=== PATIENT | female | born 1940 | race Caucasian/White ===

== ENCOUNTER → 2018-07-23 | Outpatient (CLI) | payer OTHER ==
[~2018-07-23] MED LIST: AMOXICILLIN 50500 MG PO; ASPIRIN EC81 M1 PO; ASPIRIN325 PO; AUGMENTIN 875875 MG PO; AZITHROMYCIN 2250 MG PO; BIAXIN500 MG PO; CARDIZEM CD240 MG PO; CITRATE OF MAG296 ML PO; COREG OR; COREG PO; COUMADIN OR; COUMADIN PO; DILTIAZEM ER240 M1 OR; FLECAINIDE ACET50 M1; FLONASE 0.05%50 MCG NASAL; FOLIC ACID 40400 MCG; GLUCOPHAGE XR500 MG PO; GLUCOPHAGE500 MG OR; HYDROCODON-ACE1 EACH OR; HYDROCODON-ACE1 EACH PO; IBUPROFEN 800800 M1 PO; LATANOPROST2.5 ML OPHTHALMIC; MACROBID 100 M100 M1 PO; MINIPRIN81 MG OR; OMEPRAZOLE40 MG PO; PERCOCET 7.5-31 EACH PO; PRINIVIL20 MG PO; PRINZIDE 20-121 EACH OR; PRINZIDE 20-121 EACH PO; TOPROL XL100 MG PO; TRUSOPT5 ML OP; XARELTO20 MG; ZOFRAN ODT4 MG PO
== END ==
LOC: M.RAD 11:22
DX: M54.12 Radiculopathy, cervical region (principal); I48.91 Unspecified atrial fibrillation; I10 Essential (primary) hypertension; E11.9 Type 2 diabetes mellitus without complications

== ENCOUNTER → 2018-08-04 | Outpatient (CLI) | payer OTHER | LOC: M.MRI 11:22 | DX: M43.22 Fusion of spine, cervical region (principal); M50.21 Other cervical disc displacement, high cervical region; M25.78 Osteophyte, vertebrae; M48.02 Spinal stenosis, cervical region ==

== ENCOUNTER → 2018-08-20 | Outpatient (CLI) | payer OTHER ==
[2018-08-20 09:50] LABS: CREATININE 0.7 mg/dL (0.6-1.3)
== END ==
LOC: M.CT 08-07 10:14 → M.LAB 09:20 → M.CT 11:00
PROVIDERS: Family Medicine
DX: I51.7 Cardiomegaly (principal); E27.9 Disorder of adrenal gland, unspecified; R93.89 Abnormal findings on diagnostic imaging of other specified body structures

== ENCOUNTER → 2018-08-28 | Outpatient (CLI) | payer OTHER ==
[~2018-08-28] MED LIST changes: +CLONIDINE0.1 PO; +HYDROCODONE-ACE15 ML PO; +UNICOMPLEX M TA1 TA1 PO; +VITAMIN A10000 UNI3 BUCCAL; +VITAMIN D3400 UNIT PO
--- NOTE | 2018-09-03 13:07 | PATH ---
[address] [address] PATHOLOGY RPT PROCEDURE Name: FADIA GARCIAS Room: [facility] PAL [place]#: [id number] Admission: 08/28/18 Date of : 40 Discharge: Report #: [id number] Path Case #: [id number] [facility] Accession Number: [id number] . 01 Material submitted: . LEFT SCAPULA MASS . 01 Clinical history: . Please refer to requisition for information . 02 Diagnosis: Specimen is left scapula mass, biopsy: - Fragments of soft tissue consisting of fat, skeletal muscle, and fibrosis with hemosiderin laden macrophages. - Negative for malignancy. - See comment. . (MAP:at;09/03/2018) QTA/09/03/2018 . 02 Comment: Immunohistochemical stains were performed on this specimen (block A2; appropriate controls) as follows: . GQ03-beohndjctc histiocytes. OE8YH5-wekveqju. . These findings support the above diagnosis. Should a clinical suspicion for malignancy remain, re-biopsy would be indicated . Clinical correlation is recommended. . Dr. Remy is a co-review on this case. . (MAP:at;09/03/2018) . 02 Electronically signed: . Marlon Gabriel MD, Pathologist NPI- [id number] . 01 Gross description: . Received in formalin labeled "Fadia Garcias, left scapula mass," are 4 to single needle cores of guerrero soft tissue ranging from 0.8 to 2.1 cm in length and measuring less than 0.1 cm each in diameter. The specimen is submitted entirely in cassettes A1 through A3. (TSD; 08/31/2018) TOB/TOB . 02 Pathologist provided ICD-10: [place] [address] PATHOLOGY RPT PROCEDURE Name: FADIA GARCIAS Room: [facility]#: [id number] Admission: 08/28/18 Date of : 40 Discharge: Report #: [id number] Path Case #: [id number] M79.89, R22.2 . 02 CPT . [id number] Specimen Comment: A courtesy copy of this report has been sent to Specimen Comment: [phone], . Specimen Comment: Report sent to / DR OHRN Performed at: 01 [facility] [address], [place], [place] [id number] MD Jenaro Odonnell MD Phone: [phone] Performed at: 02 [facility] [id number] [place] [id number] MD Piedad Austin MD Phone: [phone]
== END | disposition home or self-care (01) ==
LOC: M.CT 09:33
DX: R22.2 Localized swelling, mass and lump, trunk (principal); M79.9 Soft tissue disorder, unspecified; Z53.8 Procedure and treatment not carried out for other reasons

== ENCOUNTER → 2018-08-31 | Outpatient (CLI) | payer OTHER ==
[2018-08-31] VITALS (13 sets, daily range): BP systolic 168–228; BP diastolic 72–96
[~2018-08-31] VITALS: Ht 157.5 cm; Wt 75.7 kg
[2018-08-31 10:09] LABS: HEMATOCRIT 38.1 % (37.0-47.0); HEMOGLOBIN 12.7 gm/dL (12.0-15.0); MCH 29.5 pg (26.0-34.0); MCHC 33.3 g/dL (28.0-37.0); MCV 88.5 fL (80.0-100.0); MPV 8.1 fl. (7.2-11.1); RBC 4.31 mil/uL (4.20-5.00); RDW-CV 14.3 % (10.5-14.5); WBC 10.9 thou/uL (4.0-11.0)
[2018-08-31 10:10] LABS: CALCIUM 9.5 mg/dL (8.5-10.1); CREATININE 0.7 mg/dL (0.6-1.3); POTASSIUM 3.7 mmol/L (3.5-5.1)
[2018-08-31 10:16] LABS: APTT 30.8 Seconds (25.0-31.3); INR 1.1; PROTIME 10.8 Seconds (9.20-11.50)
== END | disposition home or self-care (01) ==
LOC: M.CT 09:18
PROVIDERS: Radiology Diagnostic Radiology
DX: M79.89 Other specified soft tissue disorders (principal); R22.32 Localized swelling, mass and lump, left upper limb; I48.91 Unspecified atrial fibrillation; Z90.49 Acquired absence of other specified parts of digestive tract; Z90.710 Acquired absence of both cervix and uterus; Z98.890 Other specified postprocedural states; Z79.01 Long term (current) use of anticoagulants; Z85.3 Personal history of malignant neoplasm of breast; Z88.8 Allergy status to other drugs, medicaments and biological substances; Z79.899 Other long term (current) drug therapy

== ENCOUNTER → 2019-07-06 | Outpatient (CLI) | payer OTHER | LOC: M.ULTRA 08:51 | DX: M79.89 Other specified soft tissue disorders (principal); M54.5 Low back pain; C50.111 Malignant neoplasm of central portion of right female breast; C50.112 Malignant neoplasm of central portion of left female breast ==

== ENCOUNTER 2020-03-24 11:10 | Inpatient (IN) | payer OTHER ==
[~2020-03-24] VITALS: Ht 157.5 cm; Wt 76.2 kg
[~2020-03-24 11:10] MED LIST changes: +CATAPRES0.1 MG PO; -CLONIDINE0.1 PO; +VITAMIN D-40010 MCG PO; -VITAMIN D3400 UNIT PO
[2020-03-24 11:14] VITALS: BP 129/93
[2020-03-24 11:24] VITALS: BP 139/52
[2020-03-24] MEDS ORDERED: [UNRECOGNIZED DRUG - REMARK] (11:38)
[2020-03-24 12:29] LABS: HEMOGLOBIN 12.7 gm/dL (12.0-15.0); MCHC 34.3 g/dL (28.0-37.0); MCV 90.3 fL (80.0-100.0); MPV 8.1 fl. (7.2-11.1); NUCLEATED RBCS 0 /100WBC; PLATELET COUNT* 263 thou/uL (150-400); RBC 4.09 mil/uL (4.20-5.00); WBC 26.4 thou/uL (4.0-11.0)
[2020-03-24 12:40] LABS: CALCIUM 8.7 mg/dL (8.5-10.1)
[2020-03-24 12:41] LABS: APTT 31.5 Seconds (25.0-31.3); INR 1.2
[2020-03-24 12:45] LABS: TOTAL BILIRUBIN 0.6 mg/dL (<0.1-1.0); TOTAL PROTEIN 8.2 g/dL (6.4-8.2)
[2020-03-24 13:13] LABS: ABSOLUTE LYMPHOCYTES 0.5 thou/uL (0.8-5.3); ABSOLUTE MONOCYTES 0.3 thou/uL (0.0-1.2); ABSOLUTE NEUTROPHILS 25.6 thou/uL (1.6-8.1); ANISOCYTOSIS 1+; PLATELET ESTIMATE ADEQUATE; POIKILOCYTOSIS 1+
[2020-03-24 15:25] VITALS: BP 128/54
[2020-03-24 15:45] VITALS: BP 148/57
--- NOTE | 2020-03-24 15:56 | EKG ---
[place] [address] ELECTROCARDIOGRAM REPORT Name: FADIA SCHROEDER Room: [place] [address] ADM IN .R.#: [id number] Admission: 03/24/20 Attend Phys: Zander Khanna Discharge: Date of : 40 Date of Service: 03/24/20 1211 Report #: [id number] THIS REPORT FOR: //name// [facility] ED Test Date: 2020-03-24 Test Time: 12:11:06 Pat Name: FADIA SCHROEDER Department: Room: [facility] Gender: F Marketing Communication Manager: : 1940 Requested By: Misty Aragon Order Number: [id number] MD: Rex Weston Measurements Intervals Shunk Rate: 68 P: 24 WI: 158 QRS: -9 QRSD: 124 T: -6 QT: 420 QTc: 447 Interpretive Statements Sinus rhythm Probable left ventricular hypertrophy Probable inferior infarct, age indeterminate Anterior Q waves, possibly due to LVH Compared to ECG 05/02/2016 12:17:17 Myocardial infarct finding now present Left ventricular hypertrophy now present Q waves now present Atrial flutter no longer present Electronically Signed On 03-24-2020 15:54:31 CDT by Rex Weston [email or web address] <ELECTRONICALLY SIGNED> By: Rex Weston MD, [facility] 03/24/20 1554 1211 Rex Weston MD, [facility] /EPI
--- NOTE | 2020-03-24 18:20 | NUR ---
RECEIVED REPORT FROM ER NURSE MICHAEL. PT ARRIVED TO ORTHO FLOOR AROUND 1545. PT ORIENTED TO ROOM, BED AND CALL LIGHT. ADMISSION ASSESSMENT, HISTORY AND EDUCATION COMPLETED CHARTED. PT TOLERATED DINNER WITH NO ISSUE AFTER BEING SET UP AND FOOD CUT UP. MEDS PER EMAR. PT REPORTED PAIN TO RUE - CONTACTED DR VILLELA FOR PAIN MEDICATION ORDER. MEDS RECONCILED. IV INTACT WITH IVF GOING. REDNESS AND WARMTH NOTED TO BACK, CHEST, ABDOMEN, AND DOWN RUE. RUE SWOLLEN, NON PITTING. MIDDLE FINGER OF RIGHT HAND HAS RED, IRRITATED CUTICLE. DR RICARDO. PT CURRENTLY SITTING UP IN BED. CALL LIGHT IS WITHIN REACH. HOURLY ROUNDING PERFORMED. FALL PRECAUTIONS IN PLACE.
[2020-03-24 19:30] VITALS: BP 109/52
--- NOTE | 2020-03-25 00:35 | NUR ---
PT HAVE NOT VOIDED SINCE BEGINNING OF SHIFT, DESPITE BEING ON IVF. RN ATTEMPTED BLADDER SCANNING PT @0030. PT REFUSED, SLAPPING RN'S HAND AND DEMANDING TO BE LEFT TO SLEEP. RN LEFT PT'S RM. BLADDER SCANNING NOT COMPLETED. WILL CONTINUE TO MONITOR.
[2020-03-25 05:04] LABS: HEMATOCRIT 36.6 % (37.0-47.0); HEMOGLOBIN 12.5 gm/dL (12.0-15.0); MCHC 34.1 g/dL (28.0-37.0); MCV 90.8 fL (80.0-100.0); MPV 8.6 fl. (7.2-11.1); RBC 4.02 mil/uL (4.20-5.00); RDW-CV 13.7 % (10.5-14.5); WBC 21.8 thou/uL (4.0-11.0)
[2020-03-25 05:10] LABS: URINE BILIRUBIN NEGATIVE (Negative); URINE BLOOD NEGATIVE (Negative); URINE CLARITY CLEAR; URINE COLOR YELLOW; URINE GLUCOSE-RANDOM NEGATIVE (Negative); URINE KETONES NEGATIVE (Negative); URINE LEUKOCYTES NEGATIVE (Negative); URINE NITRITE NEGATIVE (Negative); URINE PROTEIN NEGATIVE (Negative); URINE SPECIFIC GRAVITY <= 1.005 (1.005-1.030); URINE UROBILINOGEN 0.2 E.U./dl (0.2-1.0)
[2020-03-25 05:13] LABS: APTT 34.5 Seconds (25.0-31.3); INR 1.1; PROTIME 11.6 Seconds (9.20-11.50)
[2020-03-25 05:26] LABS: ALBUMIN 2.5 g/dL (3.4-5.0); ALKALINE PHOSPHATASE 18 U/L (46-116); ANION GAP 11 mmol/L (7-16); BUN 28 mg/dL (7-18); CALCIUM 8.3 mg/dL (8.5-10.1); CHLORIDE 98 mmol/L (98-107); CO2 23 mmol/L (21-32); CREATININE 0.9 mg/dL (0.6-1.3); GLUCOSE 159 mg/dL (70-99); SGOT 19 U/L (15-37); SGPT 23 U/L (30-65); SODIUM 132 mmol/L (136-145); TOTAL BILIRUBIN 0.4 mg/dL (<0.1-1.0); TOTAL PROTEIN 6.9 g/dL (6.4-8.2); TROPONIN-I LEVEL <0.06 ng/mL (<0.06)
--- NOTE | 2020-03-25 06:47 | NUR ---
PT SLEPT WELL FOR MOST PART OF SHIFT. PT WOKE VERY CONFUSED, TEARFUL, WANTING TO "GET UP AND GO TO HER BED". PT WAS ATTEMPTING TO GET O UT OF BEDF. ALL SIDERAILS WERE RAISED UP AT THAT TIME. NURSING REMAIED IN THE ROOM TO ENSURE SAFETY. PT LATER ON BECAME CONSOLABLE. PT APPOLOGIZED FOR THE WAY SHE ACTED, SAYING " I THINK I'M GOING CRAZY". PT VOIDED AT THE TIME. UA SENT TO LAB. PT WENT RESTED SOME MORE. PT IS NOW COOPERATIVE. FALL PRECAUTION IN PLACE. WILL CONTINUE TO MONITOR.
[2020-03-25 07:50] VITALS: BP 154/59
--- NOTE | 2020-03-25 17:37 | NUR ---
PT A&OX4 CONFUSED/FORGETFUL AT TIMES. HX OF CANCER, CURRENTLY BEING TREATED AT [place]. HEM/ONC CONSULTED REQUESTED BY DR VILLELA. DR FOSS RESPONDED TO [facility], BUT STATES THEIR GROUP DOES NOT COME HERE. DR AHUMADA WAS CONSULTED AND VISITED THIS PT. NO NEW PLAN MADE, SINCE THIS PT STATES SHE HAS PET SCAN SCHEDULED WITH HER HEM/ONC IN NEAR FUTURE. PT UP TO BSC W/MINIMAL ASSIST. FALL PRECAUTIONS REMAIN IN PLACE. IV TO LAC BECAME DISLODGED, AND WAS NO LONGER PATENT. THIS IV DC'D AND NEW ACCESS PLACED TO LFA. PT IS ACCUCHECK, NO INSULIN ON DEC. UPPER BACK AND RUE STILL RED, RUE REMAINS SWOLLEN. IV FLUIDS DC'D APPROVED BY DR VILLELA SINCE PT EATING/DRINKING/URINATING. IV SALINE LOCKED WHEN ABX NOT INFUSING. PT RESTS IN BED AT THIS TIME WITH PHONE AND CALL LIGHT IN REACH. WILL CONTINUE TO MONITOR.
[2020-03-25 19:30] VITALS: BP 182/80
[2020-03-26] VITALS: BP 148/53
--- NOTE | 2020-03-26 05:06 | NUR ---
PT SLEPT WELL THIS SHIFT. PT ALERT AND ORIENTED. OCCASSIONAL CONFUSION. FORGETFUL. MEDS GIVEN PER EMAR. PAIN MEDS GIVEN THIS SHIFT. FALL PRECAUTION IN PLACE. CALL LIGHT WITHIN REACH. WILL CONTINUE TO MONITOR.
[2020-03-26 08:50] VITALS: BP 166/68
--- NOTE | 2020-03-26 18:05 | NUR ---
PT AWAKE/ALERT, FORGETFUL AT TIMES. TEARFUL INTERMITTANT THROUGH SHIFT. VSS. IV TO LFA PATENT, DRESSING C/D/I. PT IS ACCUCHECK, NO INSULIN ON DEC. PT USES CALL LIGHT APPROPRIATELY. MIN ASSIST X1 TO BSC. PT REMAINS CONTINENT OF B/B. SWELLING/REDNESS IMPROVED. RUE ELEVATED FOR SWELLING. PT REMAINS ON FALL PRECAUTIONS. PT FAMILY DELIVERED HOME MEDICATION ([facility]), DR BRENNAN NOTIFIED. MED NOT ADDED TO MAR AT THIS TIME, MEDICATION SECURED WITH PHARMACY. PT RESTS IN BED WITH CALL LIGHT IN REACH. WILL CONTINUE TO MONITOR.
[2020-03-26 20:00] VITALS: BP 144/61
--- NOTE | 2020-03-27 06:33 | NUR ---
PT ALERT AND ORIENTED. CONFUSED. FORGETFUL. PT SLEPT WELL THIS SHIFT. APIN MED GIVEN X1 THIS SHIFT. NO BM NOTED FOR 5 DAYS NOW PER PT. PT IS WANTING TO TAKE MILK OF MAG. WILL PASS ON TO DAY SHIFT RN. FALL PRECAUTION IN PLACE. CALL LIGHT WITHIN REACH. HOURLY ROUNDINGS MADE. WILL CONTINUE TO MONITOR.
[2020-03-27 07:05] VITALS: BP 182/90
[2020-03-27 16:45] VITALS: BP 165/84
--- NOTE | 2020-03-27 16:55 | NUR ---
pt remained alert and oriented and forgetful. pt tearful during shift. pt states she feels like a burden. meds given as ordered. fall risk precautions in place. hourly rounding completed. will continue to monitor.
[2020-03-27 20:00] VITALS: BP 189/92
[2020-03-27 21:13] VITALS: BP 168/71
[2020-03-28 00:18] VITALS: BP 108/61
[2020-03-28 03:47] VITALS: BP 111/86
--- NOTE | 2020-03-28 04:28 | NUR ---
ASSUMED CARE OF PT 03/27/20 AT APPROX 1915. PT A&OX4, ON RA, VSS, RUE ELEVATED. PAIN MED REQUESTED AND GIVEN ORDERED. PT SLEEPING WELL. ASSESSMENTS AND HOURLY ROUNDINGS COMPLETE, WILL CONTINUE TO MONITOR.
[2020-03-28 08:08] VITALS: BP 175/68
--- NOTE | 2020-03-28 15:11 | NUR ---
SPOKE WITH PT.IN ROOM. SHE WAS ALERT AND ORIENTED. RIGHT ARM EDEMATOUS AND UP ON PILLOW. SHE SAID SHE LIVES AT HOME WITH HER AND 3 ADULT CHILDREN. AND ONE SON ARE HOME DURING THE DAY WITH HER. THE OTHER 2 WORK DURING THE DAY. SHE SAID SHE WAS TOTALLY INDEPENDENT AT HOME PRIOR TO COMING INTO THE HOSPITAL. SHE COULD SHOWER AND DRESS HERSELF. HER DAUGHTER,ASHOK, WOULD STAND BY WHILE SHE WAS IN THE SHOWER. HAS A HX OF [facility] IN THE PAST. CANNOT REMEMBER NAME OF CO. DISCUSSED SNF AT DISCHARGE. SHE SAID SHE WILL THINK ABOUT IT. SHE WOULD LIKE ME TO CALL ASHOK,HER DAUGHTER, BUT SAID SHE WON'T BE ABLE TO ANSWER UNTIL 5PM.
[2020-03-28 16:00] VITALS: BP 144/62
--- NOTE | 2020-03-28 17:20 | NUR ---
CALLED DAUGHTER,ASHOK,ON CELL [phone]. DISCUSSED DISCHARGE PLANNING WITH HER. EXPLAINED HER MOM WAS UNDECIDED ABOUT GOING TO SNF OR NOT. SHE WANTED ME TO SPEAK WITH ASHOK ABOUT IT. ASHOK SAID SHE WENT TO [facility] ONCE BUT SHE WOULD NOT WANT TO GO THERE. SHE WOULD LIKE HER TO BE CLOSE TO [place]. IF [facility] TAKES HER INS.,THAT IS WHERE THEY WOULD WANT HER TO GO . SHE WILL CALL HER MOM THIS EVENING AND HAVE HER DAD ON THE PHONE TOO AND DISCUSS. CM WILL CHECK WITH PT.IN AM.
[2020-03-28 21:46] VITALS: BP 180/76
--- NOTE | 2020-03-29 05:37 | NUR ---
RIGHT UPPER EXTREMETY ADMINISTRATIVE MEDICAL DIRECTOR AND SORE TO TOUCH. SHE RECEIVED HYDROCODONE AT 21:32 FOR PAIN AND REQUESTED NO MORE THE REST OF THE SHIFT. SHE IS UP STANDBY ASSIST TO THE COMMODE. SHE IS ON ROOM AIR. MRI ORDERED AND ORTHO CONSULTED FOR SHOULDER PAIN AND LIMITED ROM. WILL CONTINUE TO MONITOR.
[2020-03-29 07:39] VITALS: BP 189/83
[2020-03-29 10:54] LABS: HEMATOCRIT 37.2 % (37.0-47.0); HEMOGLOBIN 12.6 gm/dL (12.0-15.0); MCH 30.5 pg (26.0-34.0); MCHC 33.8 g/dL (28.0-37.0); MPV 8.4 fl. (7.2-11.1); RBC 4.13 mil/uL (4.20-5.00); RDW-CV 13.5 % (10.5-14.5); WBC 15.5 thou/uL (4.0-11.0)
[2020-03-29 11:00] VITALS: BP 147/72
[2020-03-29 11:00] LABS: CALCIUM 8.2 mg/dL (8.5-10.1); CREATININE 0.7 mg/dL (0.6-1.3)
--- NOTE | 2020-03-29 14:00 | NUR ---
SPOKE WITH PT. SHE SAID SHE THINKS HER FAMILY WANTS [facility] FOR HER FOR A SKILLED STAY. SHE WAS TEARFUL. SAID SHE NEVER WANTS TO BE A BURDEN ON HER FAMILY. CM CONFIRMED THAT IT WAS [facility] TO SEND REFERRAL TO, WITH ASHOK,PTS DAUGHTER . FAXED REFERRAL TO [facility] ADMISSIONS. THEY WILL REVIEW AND NEED TO OBTAIN INSURANCE AUTH.
[2020-03-29 16:00] VITALS: BP 172/80
--- NOTE | 2020-03-29 16:35 | NUR ---
PT UP TO BSC WITH STB ASSIST. BILLIE WRAP PLACED TO RUE R/T EDEMA. PRN PAIN MEDICATION GIVEN. PT CONFUSED AND FORGETFUL AT TIMES. PROGRESSING TOWARDS GOALS.
--- NOTE | 2020-03-29 18:11 | NUR ---
ASSUMED CARE OF PATIENT AT 1700. RECEIVED REPORT FROM MAI RODRIGUEZ.
[2020-03-29 20:44] VITALS: BP 167/77
--- NOTE | 2020-03-30 04:47 | NUR ---
PAIN WELL TOLERATED. RECEIVED ALL MEDS SCHEDULED. KEVIN IS WRAPPED IN BILLIE WRAP AND ELEVATED. SHE IS ABLE TO GET UP TO COMMODE WITH STANDBY ASSIST. SHE WAS ABLE TO SLEEP MOST OF THE SHIFT VERY WELL. PLAN IS TO D/C TO SNF. WILL CONTINUE TO FOLLOW PLAN OF CARE.
[2020-03-30 07:40] VITALS: BP 174/71
--- NOTE | 2020-03-30 11:43 | NUR ---
[facility] SAID THEY CAN ACCEPT PT. ADMISSIONS SAID THEY CANNOT DO LYMPHEDEMA WRAPS THERE. TOLD HER PT.DOES NOT HAVE THEM ON HERE. PTS PET SCAN THAT IS SCHEDULED IN SEVERAL WEEKS WILL NEED TO BE POSTPONED UNTIL OUT OF SNF. DISCUSSED WITH PT. SHE SAID SHE FIGURED PET SCAN WOULD BE POSTPONED. SHE WANTED TO KNOW WHAT SHE OWED THE HOSPITAL FOR TIME HERE. EXPLAINED HER DAILY COPAY X 5 DAYS,THEN INSURANCE PAYS AT 100%. SNF IS OPPOSITE. THEY PAY 100% FOR FIRST 20 DAYS THEN IF THERE LONGER SHE WOULD BE RESPONSIBLE FOR A DAILY COPAY. [facility] SAID THEY HAVE NOT RECEIVED INSURANCE AUTH YET.
[2020-03-30 16:00] VITALS: BP 153/70
--- NOTE | 2020-03-30 18:10 | NUR ---
ASSUMED CARE OF PATIENT AT APPROX 0730. ALERT AND ORIENTED X4. ASSESSMENT COMPLETED AND CHARTED. VSS ON ROOM AIR. MINIMAL COMPLAINT OF PAIN ADDRESSED WITH NORCO. PATIENT VERY CONCERNED ABOUT NOT HAVING A BOWEL MOVEMENT, GIVEN MILK OF MAG. PATIENT UP WITH ASSIST TO BEDSIDE COMMODE, NO BOWEL MOVEMENT TODAY. FALL PRECAUTIONS IN PLACE. CALL LIGHT WITHIN REACH. HOURLY ROUNDS COMPLETED. WILL CONTINUE WITH PLAN OF CARE.
[2020-03-30 20:45] VITALS: BP 190/88
--- NOTE | 2020-03-31 06:41 | NUR ---
Alert and oriented x 4 but tearful. She has lymph edema on her rt upper arm and MD wants her to have a lymph edema sleeve. She has not had a BM charted and she says she hasn't had a BM since 03/23. Milk of mag was given x 2 yesterday. She did have BM digitally removed this am. Message sent to get further orders. She hasn't slept well,she's been up several times to bedside commode.
[2020-03-31 08:00] VITALS: BP 170/79
[2020-03-31 08:31] LABS: HEMATOCRIT 40.1 % (37.0-47.0); HEMOGLOBIN 13.7 gm/dL (12.0-15.0); MCH 30.6 pg (26.0-34.0); MCHC 34.2 g/dL (28.0-37.0); MCV 89.3 fL (80.0-100.0); MPV 7.3 fl. (7.2-11.1); RBC 4.49 mil/uL (4.20-5.00); RDW-CV 13.6 % (10.5-14.5); WBC 14.3 thou/uL (4.0-11.0)
[2020-03-31 08:46] LABS: CALCIUM 8.5 mg/dL (8.5-10.1); CREATININE 0.8 mg/dL (0.6-1.3); POTASSIUM 4.2 mmol/L (3.5-5.1)
[2020-03-31 11:21] VITALS: BP 170/79
[2020-03-31] MEDS ORDERED: KEFLEX500 M1 PO ×2 (11:26→11:33)
[2020-03-31] MEDS ORDERED: PREDNISONE 10 M10 MG PO (11:33)
[2020-03-31] MEDS ORDERED: HYDROCODON-ACE1 EAC7 PO (11:33)
--- NOTE | 2020-03-31 12:26 | NUR ---
INSURANCE DENIED SNF FOR PT. EVEN AFTER P-P WITH . CM INFORMED DAUGHTER,ASHOK. SHE SAID SHE WILL JUST TAKE HER HOME. SHE CAN PICK HER UP AFTER SHE GETS OFF WORK THIS AFTRNOON. SHE WILL CALL RN AND LET HER KNOW WHAT TIME. SHE WOULD LIKE [facility]. SPOKE WITH INTAKE AND FAXED H&P/DISCHARGE SUMMARY AND ORDERS TO [facility] [phone].
--- NOTE | 2020-03-31 16:31 | NUR ---
PT HAS BEEN A/O X4,VSS,MED-SURG STATUS.ON ROOM AIR.PAIN MANAGED WELL WITH MEDICATIONS.TUBE PRINT PRESS OPERATOR PLACED BY WOUND CARE NURSE ON RIGHT ARM.DISCHARGE PICTURES TAKEN.IV REMOVED.ALL PERSONAL BELONGINGS PACKED AND TAKEN WITH PT.MEDICATIONS COLLECTED FROM PHARMACY AND SENT WITH PT.PT WHEELED OUT BY NURSING TO PERSONAL VEHICLE.
== END 2020-03-31 17:35 | disposition home health service (06) | DRG 872 ==
LOC: M.ERS 11:10 → M.TBA-ER 13:45 → M.ORTHSURG 13:45
PROVIDERS: Internal Medicine; Personal Emergency Response Attendant; ADMIT Internal Medicine; ATTEND Internal Medicine
DX: A41.9 Sepsis, unspecified organism (principal); E44.1 Mild protein-calorie malnutrition; C16.9 Malignant neoplasm of stomach, unspecified; L03.113 Cellulitis of right upper limb; C79.51 Secondary malignant neoplasm of bone; E11.9 Type 2 diabetes mellitus without complications; I10 Essential (primary) hypertension; I48.91 Unspecified atrial fibrillation; C50.919 Malignant neoplasm of unspecified site of unspecified female breast; M19.011 Primary osteoarthritis, right shoulder; M75.101 Unspecified rotator cuff tear or rupture of right shoulder, not specified as traumatic; Z96.653 Presence of artificial knee joint, bilateral; L50.9 Urticaria, unspecified; Z20.828 Contact with and (suspected) exposure to other viral communicable diseases; Z68.30 Body mass index [BMI] 30.0-30.9, adult; Z90.710 Acquired absence of both cervix and uterus; Z79.01 Long term (current) use of anticoagulants; Z79.899 Other long term (current) drug therapy; Z88.8 Allergy status to other drugs, medicaments and biological substances; Z90.49 Acquired absence of other specified parts of digestive tract